=== PATIENT | female | born 1980 | race Caucasian/White ===

== ENCOUNTER → 2016-09-19 | Outpatient (CLI) | payer BC | END | disposition home or self-care (01) | LOC: LABWHC1 10:30 | PROVIDERS: ATTEND Otolaryngology | DX: E03.9 Hypothyroidism, unspecified (principal); R53.83 Other fatigue | CPT/HCPCS: 36415; 84439; 84443 ==

== ENCOUNTER → 2016-12-21 | Outpatient (CLI) | payer BC | END | disposition home or self-care (01) | LOC: LABWHC1 11:36 | PROVIDERS: ATTEND Nurse Practitioner Family | DX: E03.9 Hypothyroidism, unspecified (principal) | CPT/HCPCS: 36415; 84439; 84443 ==

== ENCOUNTER → 2017-01-09 | Outpatient (CLI) | payer BC ==
[2017-01-09 15:05] LABS: Basophils % (A) 0 %; CH 31.3; CHCM 33.2; Eosinophils # (A) 0.1 k/uL (0-0.7); Eosinophils % (A) 1 %; HCT 43.1 % (34.0-46.0); HDW 2.45; HGB 13.8 gm/dL (11.4-16.0); Luc # (Auto) 0.14; Luc % (Auto) 1; Lymphocytes # (A) 2.4 k/uL (1.0-4.8); Lymphocytes % (A) 25 %; MCH 30.4 pg (25.0-35.0); MCHC 32.2 g/dL (31.0-37.0); MCV 94.6 fL (80.0-100.0); Mean Platelet Volume 6.8; Monocytes # (A) 0.4 k/uL (0-1.0); Monocytes % (A) 4 %; Neutrophils # (A) 6.8 k/uL (1.3-7.7); Neutrophils % (A) 69 %; RBC 4.55 m/uL (3.80-5.40); RDW 12.9 % (11.5-15.5); WBC 9.9 k/uL (3.8-10.6); WBC (Perox) 10.37
[2017-01-09 15:07] LABS: Appearance,Urine Cloudy (Clear); Bacteria,Urine Many /hpf; Bilirubin,Urine Negative (Negative); Glucose,Urine (UA) Negative (Negative); Ketones,Urine Negative (Negative); Leukocyte Esterase,Urine Negative (Negative); Mucus,Urine Occasional /hpf; Nitrite,Urine Negative (Negative); Particle Count 5926; Protein,Urine Negative (Negative); RBC,Urine 1 /hpf (0-5); Specific Gravity,Urine 1.006 (1.001-1.035); Squamous Epithelial Cell,Urine 11 /hpf (0-4); UA Billing (MACRO vs. MICRO) MICRO; Urobilinogen,Urine <2.0 mg/dL (<2.0); WBC,Urine 3 /hpf (0-5)
[2017-01-09 15:16] LABS: ALT 30 U/L (9-52); AST 14 U/L (14-36); Alkaline Phosphatase 57 U/L (38-126); Anion Gap 12 mmol/L; Blood Urea Nitrogen 11 mg/dL (7-17); Calcium 9.8 mg/dL (8.4-10.2); Carbon Dioxide 27 mmol/L (22-30); Chloride 101 mmol/L (98-107); Glucose 104 mg/dL (74-99); Non-African American GFR(MDRD) >60 (>60 ml/min/1.73 sqM); Potassium 4.1 mmol/L (3.5-5.1); Sodium 140 mmol/L (137-145); Total Bilirubin 0.3 mg/dL (0.2-1.3); Total Protein 7.5 g/dL (6.3-8.2)
[2017-01-09 15:25] LABS: Partial Thromboplastin Time 23.9 sec (22.0-30.0)
== END | disposition home or self-care (01) ==
LOC: LABWHC1 14:38
PROVIDERS: ATTEND Neurological Surgery
DX: M48.02 Spinal stenosis, cervical region (principal)
CPT/HCPCS: 36415; 80053; 81001; 85025; 85610; 85730

== ENCOUNTER 2017-02-13 04:10 | Emergency (ER) | payer BC ==
[2017-02-13] MEDS ORDERED: ONDANSETRON 4 MG/2 ML VIAL IVP STA (04:30)
[2017-02-13] MEDS ORDERED: SODIUM CHLORIDE 0.9% 1,000 ML IV STA (04:30)
[2017-02-13] MEDS ORDERED: KETOROLAC 30 MG/ML 1 ML VIAL IVP STA (04:30)
[2017-02-13] MEDS ORDERED: diphenhydrAMINE 50 MG/ML 1 ML VIAL IVP STA (04:31)
[2017-02-13] MEDS ORDERED: DEXAMETHASONE SOD PHOSPHATE 10 MG/ML 1 ML VIAL IV STA (04:52)
[2017-02-13 05:12] LABS: Basophils % (A) 0 %; CH 31.6; CHCM 34.9; Eosinophils # (A) 0.1 k/uL (0-0.7); Eosinophils % (A) 2 %; HCT 42.4 % (34.0-46.0); HDW 2.58; HGB 14.6 gm/dL (11.4-16.0); Luc # (Auto) 0.06; Luc % (Auto) 1; Lymphocytes % (A) 17 %; MCH 31.3 pg (25.0-35.0); MCHC 34.4 g/dL (31.0-37.0); MCV 91.1 fL (80.0-100.0); Monocytes # (A) 0.3 k/uL (0-1.0); Monocytes % (A) 5 %; Neutrophils # (A) 4.5 k/uL (1.3-7.7); Neutrophils % (A) 75 %; RBC 4.65 m/uL (3.80-5.40); RDW 13.8 % (11.5-15.5); WBC (Perox) 5.84
[2017-02-13 05:21] LABS: ALT 58 U/L (9-52); AST 23 U/L (14-36); Alkaline Phosphatase 79 U/L (38-126); Anion Gap 13 mmol/L; Blood Urea Nitrogen 10 mg/dL (7-17); Calcium 9.9 mg/dL (8.4-10.2); Carbon Dioxide 24 mmol/L (22-30); Chloride 104 mmol/L (98-107); Glucose 100 mg/dL (74-99); Non-African American GFR(MDRD) >60 (>60 ml/min/1.73 sqM); Potassium 4.1 mmol/L (3.5-5.1); Sodium 141 mmol/L (137-145); Total Bilirubin 0.4 mg/dL (0.2-1.3); Total Protein 7.5 g/dL (6.3-8.2)
[2017-02-13 05:22] LABS: Appearance,Urine Cloudy (Clear); Bacteria,Urine Many /hpf; Bilirubin,Urine Negative (Negative); Glucose,Urine (UA) Negative (Negative); Ketones,Urine Negative (Negative); Leukocyte Esterase,Urine Negative (Negative); Mucus,Urine Rare /hpf; Nitrite,Urine Negative (Negative); Particle Count 13304; Protein,Urine Negative (Negative); RBC,Urine 3 /hpf (0-5); Specific Gravity,Urine 1.009 (1.001-1.035); Squamous Epithelial Cell,Urine 20 /hpf (0-4); UA Billing (MACRO vs. MICRO) MICRO; Urobilinogen,Urine <2.0 mg/dL (<2.0); WBC,Urine 9 /hpf (0-5)
[2017-02-13 05:42] VITALS: RESP 16
[2017-02-13] MEDS ORDERED: HYDROmorphone 1 MG/ML 1 ML SYRINGE IVP STA (05:47)
--- NOTE | 2017-02-13 06:11 | ED ---
General Adult HPI - General Chief complaint: Headache Stated complaint: Migrane Time Seen by Provider: 02/13/17 04:20 Source: patient, RN notes reviewed Mode of arrival: ambulatory Limitations: no limitations - History of Present Illness Initial comments: 36-year-old female with history of migraine presents with bilateral frontal headache. Patient had cervical disc replacement approximately one month ago. She has been wearing a soft cervical collar. She has a history of migraines but has been doing well since her surgery. Over the past 24 hours she has had a worsening headache. This was gradual in onset, typical of her migraines. It is a frontal throbbing headache. She is reporting photophobia. She also had 4 episodes of nausea and vomiting. She has taken Excedrin Migraine, Fioricet without relief. She denies any chest pain or shortness of breath. Denies cough , denies fever, denies abdominal pain or denies dysuria. - Related Data Home Medications Medication Instructions Recorded Confirmed Sertraline [Zoloft] 100 mg PO BID 05/13/15 01/04/16 buPROPion HCL [Wellbutrin XL] 300 mg PO HS 05/13/15 01/04/16 Melatonin 3 mg PO HS 11/14/15 01/04/16 Multivitamins, Thera [Multivitamin] 1 tab PO HS 11/14/15 01/04/16 Butalb/Acetaminophen/Caffeine 1 - 2 cap PO Q4HR PRN 11/30/15 01/04/16 [Fioricet 50-300-40 mg Capsule] Amoxic-Pot Clav 875-125Mg 1 tab PO AC-BID 01/04/16 01/04/16 [Augmentin 875-125] HYDROcodone/APAP 5-325MG [[place] 1 - 2 tab PO Q6H PRN 01/04/16 01/04/16 5-325] predniSONE 20 mg PO DAILY 01/04/16 01/04/16 Allergies Allergy/AdvReac Type Severity Reaction Status Date / Time chlorhexidine Allergy Rash/Hives Verified 02/13/17 04:18 [From Hibiclens] meperidine HCl [From Demerol] Allergy Nausea & Verified 02/13/17 04:18 Vomiting Review of Systems ROS Statement: Those systems with pertinent positive or pertinent negative responses have been documented in the HPI. ROS Other: All systems not noted in ROS Statement are negative. Past Medical History Past Medical History: Cancer Additional Past Medical History / Comment(s): cervical CA, migranes, herniated cervical disks History of Any Multi-Drug Resistant Organisms: None Reported Past Surgical History: Hysterectomy, Joint Replacement, Tonsillectomy Additional Past Surgical History / Comment(s): c6-c7 replaced 01/15/2017 Past Anesthesia/Blood Transfusion Reactions: No Reported Reaction Past Psychological History: Anxiety, Depression Smoking Status: Never smoker Past Alcohol Use History: None Reported Past Drug Use History: None Reported - Past Family History Mother Family Medical History: No Reported History General Exam Limitations: no limitations General appearance: alert, in no apparent distress Head exam: Present: atraumatic, normocephalic Eye exam: Present: normal appearance, PERRL, EOMI, other (Funduscopic examination is unremarkable). Absent: scleral icterus ENT exam: Present: normal exam, mucous membranes moist Neck exam: Present: normal inspection, full ROM, other (Anterior cervical incisions are clean dry and intact). Absent: meningismus Respiratory exam: Present: normal lung sounds bilaterally. Absent: respiratory distress Cardiovascular Exam: Present: regular rate, normal rhythm GI/Abdominal exam: Present: soft. Absent: distended, tenderness Extremities exam: Present: normal inspection, normal capillary refill. Absent: pedal edema Neurological exam: Present: alert, oriented X3, CN II-XII intact. Absent: motor sensory deficit Psychiatric exam: Present: normal affect, normal mood Skin exam: Present: warm, dry Course Vital Signs 02/13/17 02/13/17 02/13/17 04:12 05:07 05:41 Temperature 98.4 F 99.8 F H Pulse Rate 110 H 99 94 Respiratory 18 18 16 Rate Blood Pressure 142/89 143/98 135/77 O2 Sat by Pulse 97 100 98 Oximetry 02/13/17 06:32 Temperature 98.4 F Pulse Rate 82 Respiratory 16 Rate Blood Pressure 126/88 O2 Sat by Pulse 97 Oximetry - Reevaluation(s) Reevaluation #1: 02/13/17 06:09 After initial round of medication patient's headache is now 6 out of 10 from 8 out of 10. Medical Decision Making - Medical Decision Making 36-year-old female with history of migraine presents with headache is typical of her migraines. It was gradual in onset. Frontal and throbbing. There is associated photophobia. Patient had cervical fusion approximately one month ago. She had no complaint of neck pain. No upper extremity numbness tingling or weakness. Her neurologic examination is nonfocal. She is given a headache cocktail including Toradol, Benadryl, Zofran, and dexamethasone. On reevaluation headache is somewhat improved. She does state that in the past Dilaudid has helped her headache. Laboratory studies including CBC, CMP, urinalysis and urine tests are unremarkable. After second dose of IV pain medication the patient is feeling much better. Headache is 2 out of 10. Patient will follow-up with her primary care physician. - Lab Data Result diagrams: 02/13/17 04:50 02/13/17 04:50 Lab Results 02/13/17 02/13/17 02/13/17 Range/Units 04:50 04:50 04:50 WBC 6.0 (3.8-10.6) k/uL RBC 4.65 (3.80-5.40) m/uL Hgb 14.6 (11.4-16.0) gm/dL Hct 42.4 (34.0-46.0) % MCV 91.1 (80.0-100.0) fL MCH 31.3 (25.0-35.0) pg MCHC 34.4 (31.0-37.0) g/dL RDW 13.8 (11.5-15.5) % Plt Count 269 (150-450) k/uL Neutrophils % 75 % Lymphocytes % 17 % Monocytes % 5 % Eosinophils % 2 % Basophils % 0 % Neutrophils # 4.5 (1.3-7.7) k/uL Lymphocytes # 1.0 (1.0-4.8) k/uL Monocytes # 0.3 (0-1.0) k/uL Eosinophils # 0.1 (0-0.7) k/uL Basophils # 0.0 (0-0.2) k/uL Sodium 141 (137-145) mmol/L Potassium 4.1 (3.5-5.1) mmol/L Chloride 104 (98-107) mmol/L Carbon Dioxide 24 (22-30) mmol/L Anion Gap 13 mmol/L BUN 10 (7-17) mg/dL Creatinine 0.70 (0.52-1.04) mg/dL Est GFR (MDRD) Af Amer >60 (>60 ml/min/1.73 sqM) Est GFR (MDRD) Non-Af >60 (>60 ml/min/1.73 sqM) Glucose 100 H (74-99) mg/dL Calcium 9.9 (8.4-10.2) mg/dL Total Bilirubin 0.4 (0.2-1.3) mg/dL AST 23 (14-36) U/L ALT 58 H (9-52) U/L Alkaline Phosphatase 79 (38-126) U/L Total Protein 7.5 (6.3-8.2) g/dL Albumin 4.8 (3.5-5.0) g/dL Urine Color Urine Appearance (Clear) Urine pH (5.0-8.0) Ur Specific [place] (1.001-1.035) Urine Protein (Negative) Urine Glucose (UA) (Negative) Urine Ketones (Negative) Urine Blood (Negative) Urine Nitrite (Negative) Urine Bilirubin (Negative) Urine Urobilinogen (<2.0) mg/dL Ur Leukocyte Esterase (Negative) Urine RBC (0-5) /hpf Urine WBC (0-5) /hpf Ur Squamous Epith Cells (0-4) /hpf Urine Bacteria (None) /hpf Urine Mucus (None) /hpf Urine HCG, Qual Not Detected (Not Detectd) 02/13/17 Range/Units 04:50 WBC (3.8-10.6) k/uL RBC (3.80-5.40) m/uL Hgb (11.4-16.0) gm/dL Hct (34.0-46.0) % MCV (80.0-100.0) fL MCH (25.0-35.0) pg MCHC (31.0-37.0) g/dL RDW (11.5-15.5) % Plt Count (150-450) k/uL Neutrophils % % Lymphocytes % % Monocytes % % Eosinophils % % Basophils % % Neutrophils # (1.3-7.7) k/uL Lymphocytes # (1.0-4.8) k/uL Monocytes # (0-1.0) k/uL Eosinophils # (0-0.7) k/uL Basophils # (0-0.2) k/uL Sodium (137-145) mmol/L Potassium (3.5-5.1) mmol/L Chloride (98-107) mmol/L Carbon Dioxide (22-30) mmol/L Anion Gap mmol/L BUN (7-17) mg/dL Creatinine (0.52-1.04) mg/dL Est GFR (MDRD) Af Amer (>60 ml/min/1.73 sqM) Est GFR (MDRD) Non-Af (>60 ml/min/1.73 sqM) Glucose (74-99) mg/dL Calcium (8.4-10.2) mg/dL Total Bilirubin (0.2-1.3) mg/dL AST (14-36) U/L ALT (9-52) U/L Alkaline Phosphatase (38-126) U/L Total Protein (6.3-8.2) g/dL Albumin (3.5-5.0) g/dL Urine Color Light Yellow Urine Appearance Cloudy H (Clear) Urine pH 6.0 (5.0-8.0) Ur Specific [place] 1.009 (1.001-1.035) Urine Protein Negative (Negative) Urine Glucose (UA) Negative (Negative) Urine Ketones Negative (Negative) Urine Blood Trace H (Negative) Urine Nitrite Negative (Negative) Urine Bilirubin Negative (Negative) Urine Urobilinogen <2.0 (<2.0) mg/dL Ur Leukocyte Esterase Negative (Negative) Urine RBC 3 (0-5) /hpf Urine WBC 9 H (0-5) /hpf Ur Squamous Epith Cells 20 H (0-4) /hpf Urine Bacteria Many H (None) /hpf Urine Mucus Rare H (None) /hpf Urine HCG, Qual (Not Detectd) Disposition Clinical Impression: Migraine Disposition: HOME SELF-CARE Condition: Good Instructions: Acute Headache (ED) Referrals: Yassine Em DO [Primary Care Provider] - 1-2 days
[2017-02-13 07:01] VITALS: BP 128/89; PULSE 86; TEMP 98.3
== END 2017-02-13 07:00 | disposition home or self-care (01) ==
LOC: EC 04:10
DX: G43.909 Migraine, unspecified, not intractable, without status migrainosus (principal); F32.9 Major depressive disorder, single episode, unspecified; F41.9 Anxiety disorder, unspecified; Z85.41 Personal history of malignant neoplasm of cervix uteri; Z79.52 Long term (current) use of systemic steroids; Z79.899 Other long term (current) drug therapy; Z88.5 Allergy status to narcotic agent; Z88.8 Allergy status to other drugs, medicaments and biological substances
CPT/HCPCS: 36415; 80053; 85025; 81001; 81025; 99283; 96374; 96375 ×4; 96361; J1200; J1100; J2405; J1885; J1170

== ENCOUNTER → 2017-02-18 | Outpatient (CLI) | payer BC ==
--- NOTE | 2017-02-18 09:43 | XR ---
EXAMINATION TYPE: XR cervical spine w flex/ext DATE OF EXAM: 02/18/2017 COMPARISON: MR cervical spine dated 05/29/2016. HISTORY: Postoperative examination. TECHNIQUE: 5 view cervical spine radiograph. FINDINGS: Intervertebral disc device has been placed at the C6-C7 level. The cervical spine maintains normal alignment in the neutral position, flexion, and extension. No significant prevertebral soft t issue swelling is seen. No evidence of fracture or dislocation. IMPRESSION: Postsurgical changes of the cervical spine without malalignment, fracture, dislocation, o r significant prevertebral soft tissue swelling.
== END | disposition home or self-care (01) ==
LOC: RADXRMAIN 09:03
PROVIDERS: ATTEND Neurological Surgery
DX: M54.2 Cervicalgia (principal); Z98.890 Other specified postprocedural states
CPT/HCPCS: 72052

== ENCOUNTER → 2017-04-23 | Outpatient (CLI) | payer BC, OTHER ==
--- NOTE | 2017-04-23 09:44 | XR ---
EXAMINATION TYPE: XR cervical spine w flex/ext DATE OF EXAM: 04/23/2017 TECHNIQUE: Frontal, lateral, oblique, dynamic flexion and extension lateral images, and open mouth vi ew of the cervical spine are obtained. HISTORY: M47.22 spondylosis C6-C7 surgery progress study. COMPARISON: Cervical spine x-ray February 18, 2017 FINDINGS: The cervical spine is visualized in its entirety from C1 thru the top of T1 level, it is s atisfactory and straightened in alignment without evidence of acute fracture or dislocation. The pre -vertebral soft tissue appears within normal limits. The C1-C2 articulation is within normal limits on the open mouth view. There is redemonstration of metallic disc spacers C6-C7 level. There is satisfactory flexion and exte nsion with stability of endplate metallic spacers. Vertebral body heights and disc space heights are maintained. Oblique images are felt within normal limits. No significant spurring is seen. No suspici ous subluxation or increased disc space narrowing is identified on dynamic images. Overlying soft tis jose is unremarkable. IMPRESSION: Postsurgical changes C6-C7 level with stable and satisfactory alignment including on kristian melo images.
== END | disposition home or self-care (01) ==
LOC: RADXRMAIN 09:11
PROVIDERS: ATTEND Neurological Surgery
DX: M47.22 Other spondylosis with radiculopathy, cervical region (principal); Z98.890 Other specified postprocedural states
CPT/HCPCS: 72052

== ENCOUNTER → 2017-07-23 | Outpatient (CLI) | payer BC ==
--- NOTE | 2017-07-23 18:31 | XR ---
EXAMINATION TYPE: XR cervical spine w flex/ext DATE OF EXAM: 07/23/2017 COMPARISON: 04/23/2017 HISTORY: Follow-up surgery TECHNIQUE: 4 views FINDINGS: Multiple filling exam including flexion and extension views show no evidence of instability there is normal movement on the positional views. There is previous anterior fusion at C6-7. Posteri or elements are intact. IMPRESSION: No evidence of instability. No adverse change compared to old exam. Normal alignment.
== END | disposition home or self-care (01) ==
LOC: RADXRMAIN 17:44
PROVIDERS: ATTEND Neurological Surgery
DX: M50.30 Other cervical disc degeneration, unspecified cervical region (principal)
CPT/HCPCS: 72052

== ENCOUNTER → 2017-10-08 | Outpatient (CLI) | payer BC ==
--- NOTE | 2017-10-08 08:30 | MR ---
EXAMINATION TYPE: MR cervical spine wo con DATE OF EXAM: 10/08/2017 6:44 AM COMPARISON: Preoperative evaluation 05/29/2016 HISTORY: Cervical Disc Degeneration, neck pain, arm tingling and numbness Multiplanar MultiSpin echo imaging of the cervical spine was performed. C2-C3: No evidence for degenerative disc disease. No disc bulge/herniation or protrusion. No Canal stenosis. Foramina are patent bilaterally. C3-C4: No evidence for degenerative disc disease. No disc bulge/herniation or protrusion. No Canal stenosis. Foramina are patent bilaterally. C4-C5: No evidence for degenerative disc disease. No disc bulge/herniation or protrusion. No Canal stenosis. Foramina are patent bilaterally. C5-C6: No evidence for degenerative disc disease. No disc bulge/herniation or protrusion. No Canal stenosis. Foramina are patent bilaterally. C6-C7: Postsurgical changes of anterior cervical discectomy and fusion. Intervertebral spacer with ex tensive artifact limits evaluation at this level. Alignment is anatomic. C7-T1: No evidence for degenerative disc disease. No disc bulge/herniation or protrusion. No Canal stenosis. Foramina are patent bilaterally. Cervical segments are intact. There is normal alignment. Cervical spinal cord is of normal signal. Craniovertebral junction relationships are within normal limits. IMPRESSION: 1. Postoperative changes of ACDF at C6-7 with extensive artifact limiting evaluation at this level. T he remaining levels are felt to be within normal limits.
== END | disposition home or self-care (01) ==
LOC: RADMRIMAIN 06:02
PROVIDERS: ATTEND Neurological Surgery
DX: M50.30 Other cervical disc degeneration, unspecified cervical region (principal); Z98.1 Arthrodesis status
CPT/HCPCS: 72141

== ENCOUNTER → 2018-09-17 | Outpatient (CLI) | payer BC ==
[2018-09-17 19:40] LABS: T4, Free (Free Thyroxine) 0.9 ng/dL (0.80-1.80)
== END ==
LOC: LABWHC1 12:43
PROVIDERS: ATTEND Otolaryngology
DX: E03.9 Hypothyroidism, unspecified (principal)
CPT/HCPCS: 36415; 84439; 84443

== ENCOUNTER 2018-11-06 21:27 | Emergency (ER) | payer BC ==
[2018-11-06] MEDS ORDERED: SODIUM CHLORIDE 0.9% 500 ML 500 ML IV STA (21:55)
[2018-11-06] MEDS ORDERED: ASPIRIN 81 MG PO STA (22:03)
--- NOTE | 2018-11-06 22:03 | ED ---
General Adult HPI - General Chief complaint: Chest Pain Stated complaint: Chest Pain,Upper Back Pain,SOB Time Seen by Provider: 11/06/18 21:41 Source: patient, RN notes reviewed Mode of arrival: ambulatory Limitations: no limitations - History of Present Illness Initial comments: 38-year-old female with a past medical history of Cervical cancer, migraines, herniated disc, anxiety, thyroid disorder presents to the emergency department for a chief complaint of chest pressure 3 hours. Patient states onset was approximately 7:00 PM. The patient states she was driving when this started. Patient admits that she's had a significant amount of stress over the past 6 months. Patient states pain is radiating to her back between her shoulder blades. Patient denies increased pain with taking a deep breath but does state it is difficult to take a deep breath. Patient denies any recent travel, surgeries, trauma. Denies any swelling in the legs or pain in the legs.patient denies any cardiac history and her parents or siblings however states her marcelino richardson grandfather had an [place] at 42. Patient has no other complaints at this time including abdominal pain, nausea or vomiting, headache, or visual changes. - Related Data Home Medications Medication Instructions Recorded Confirmed Sertraline [Zoloft] 100 mg PO BID 05/13/15 11/06/18 buPROPion HCL [Wellbutrin XL] 300 mg PO HS 05/13/15 11/06/18 ALPRAZolam [Xanax] 0.5 mg PO BID 11/06/18 11/06/18 Levothyroxine Sodium [Synthroid] 25 mcg PO DAILY 11/06/18 11/06/18 Omeprazole Magnesium [PriLOSEC OTC] 20 mg PO DAILY PRN 11/06/18 11/06/18 Allergies Allergy/AdvReac Type Severity Reaction Status Date / Time chlorhexidine Allergy Rash/Hives Verified 11/06/18 21:42 [From Hibiclens] meperidine HCl [From Demerol] AdvReac Nausea & Verified 11/06/18 21:42 Vomiting Review of Systems ROS Statement: Those systems with pertinent positive or pertinent negative responses have been documented in the HPI. ROS Other: All systems not noted in ROS Statement are negative. Past Medical History Past Medical History: Cancer Additional Past Medical History / Comment(s): cervical CA, migranes, herniated cervical disks History of Any Multi-Drug Resistant Organisms: None Reported Past Surgical History: Hysterectomy, Joint Replacement, Tonsillectomy Additional Past Surgical History / Comment(s): c6-c7 replaced 01/15/2017, partial thyroid removed Past Anesthesia/Blood Transfusion Reactions: No Reported Reaction Past Psychological History: Anxiety, Depression Smoking Status: Never smoker Past Alcohol Use History: None Reported Past Drug Use History: None Reported - Past Family History Mother Family Medical History: No Reported History General Exam Limitations: no limitations General appearance: alert, in no apparent distress Head exam: Present: atraumatic, normocephalic, normal inspection Eye exam: Present: normal appearance, PERRL, EOMI. Absent: scleral icterus, conjunctival injection, periorbital swelling ENT exam: Present: normal exam Neck exam: Present: normal inspection, full ROM. Absent: tenderness, meningismus, lymphadenopathy Respiratory exam: Present: normal lung sounds bilaterally. Absent: respiratory distress, wheezes, rales, rhonchi, stridor Cardiovascular Exam: Present: regular rate, normal rhythm, normal heart sounds. Absent: systolic murmur, diastolic murmur, rubs, gallop, clicks GI/Abdominal exam: Present: soft, normal bowel sounds. Absent: distended, tenderness, guarding, rebound, rigid Neurological exam: Present: alert, oriented X3, CN II-XII intact Psychiatric exam: Present: normal affect, normal mood Course Vital Signs 11/06/18 11/06/18 11/06/18 21:29 21:38 21:40 Temperature 98.2 F Pulse Rate 98 93 99 Respiratory 18 20 20 Rate Blood Pressure 139/95 141/101 O2 Sat by Pulse 99 98 97 Oximetry 11/06/18 11/06/18 11/06/18 21:50 22:00 22:10 Temperature Pulse Rate 100 101 H 103 H Respiratory 18 14 15 Rate Blood Pressure 141/101 141/101 127/96 O2 Sat by Pulse 99 98 97 Oximetry 11/06/18 11/06/18 11/06/18 22:20 22:30 22:40 Temperature Pulse Rate 100 106 H 105 H Respiratory 20 16 12 Rate Blood Pressure 127/96 127/96 135/99 O2 Sat by Pulse 99 97 98 Oximetry 11/06/18 11/06/18 22:50 23:00 Temperature Pulse Rate 96 100 Respiratory 14 13 Rate Blood Pressure 135/99 135/99 O2 Sat by Pulse 96 97 Oximetry EKG Findings - EKG Comments: EKG Findings:: Normal sinus rhythm, ventricular rate 96, DE interval 160, QRS 92, QTc 477 Medical Decision Making - Medical Decision Making 38-year-old female presents to the emergency department for chest pressure radiating to shoulder blades. Patient states she's been very anxious lately and had a lot of stress in the past 6 months. Patient states she feels like she can't get a deep breath. Exam is unremarkable. Patient is well-appearing. CBC and CMP is unremarkable. Troponin is negative. CTA shows no pulmonary embolism or aortic aneurysm or dissection. Patient was given 2 mg of morphine, feeling much better. Patient is very low risk, a never smoker without any cardiac history. Patient has a heart score of 1. EKG unremarkable. At this time patient can follow up outpatient. She will return here if she has any worsening symptoms. - Lab Data Result diagrams: 11/06/18 21:46 11/06/18 21:46 Lab Results 11/06/18 11/06/18 11/06/18 Range/Units 21:46 21:46 21:46 WBC 7.3 (3.8-10.6) k/uL RBC 4.52 (3.80-5.40) m/uL Hgb 13.7 (11.4-16.0) gm/dL Hct 41.0 (34.0-46.0) % MCV 90.7 (80.0-100.0) fL MCH 30.3 (25.0-35.0) pg MCHC 33.4 (31.0-37.0) g/dL RDW 13.1 (11.5-15.5) % Plt Count 319 (150-450) k/uL Neutrophils % 54 % Lymphocytes % 37 % Monocytes % 5 % Eosinophils % 2 % Basophils % 1 % Neutrophils # 3.9 (1.3-7.7) k/uL Lymphocytes # 2.7 (1.0-4.8) k/uL Monocytes # 0.4 (0-1.0) k/uL Eosinophils # 0.1 (0-0.7) k/uL Basophils # 0.1 (0-0.2) k/uL PT (9.0-12.0) sec INR (<1.2) APTT (22.0-30.0) sec Sodium 139 (137-145) mmol/L Potassium 3.9 (3.5-5.1) mmol/L Chloride 105 (98-107) mmol/L Carbon Dioxide 24 (22-30) mmol/L Anion Gap 10 mmol/L BUN 15 (7-17) mg/dL Creatinine 0.70 (0.52-1.04) mg/dL Est GFR (CKD-EPI)AfAm >90 (>60 ml/min/1.73 sqM) Est GFR (CKD-EPI)NonAf >90 (>60 ml/min/1.73 sqM) Glucose 113 H (74-99) mg/dL Calcium 9.7 (8.4-10.2) mg/dL Magnesium 2.2 (1.6-2.3) mg/dL Total Bilirubin 0.4 (0.2-1.3) mg/dL AST 25 (14-36) U/L ALT 38 (9-52) U/L Alkaline Phosphatase 78 (38-126) U/L Troponin I (0.000-0.034) ng/mL NT-Pro-B Natriuret Pep 22 pg/mL Total Protein 7.2 (6.3-8.2) g/dL Albumin 4.6 (3.5-5.0) g/dL Amylase 73 (30-110) U/L Lipase 273 (23-300) U/L Urine Color Urine Appearance (Clear) Urine pH (5.0-8.0) Ur Specific [place] (1.001-1.035) Urine Protein (Negative) Urine Glucose (UA) (Negative) Urine Ketones (Negative) Urine Blood (Negative) Urine Nitrite (Negative) Urine Bilirubin (Negative) Urine Urobilinogen (<2.0) mg/dL Ur Leukocyte Esterase (Negative) 11/06/18 11/06/18 11/06/18 Range/Units 21:46 21:46 22:32 WBC (3.8-10.6) k/uL RBC (3.80-5.40) m/uL Hgb (11.4-16.0) gm/dL Hct (34.0-46.0) % MCV (80.0-100.0) fL MCH (25.0-35.0) pg MCHC (31.0-37.0) g/dL RDW (11.5-15.5) % Plt Count (150-450) k/uL Neutrophils % % Lymphocytes % % Monocytes % % Eosinophils % % Basophils % % Neutrophils # (1.3-7.7) k/uL Lymphocytes # (1.0-4.8) k/uL Monocytes # (0-1.0) k/uL Eosinophils # (0-0.7) k/uL Basophils # (0-0.2) k/uL PT 9.8 (9.0-12.0) sec INR 0.9 (<1.2) APTT 26.4 (22.0-30.0) sec Sodium (137-145) mmol/L Potassium (3.5-5.1) mmol/L Chloride (98-107) mmol/L Carbon Dioxide (22-30) mmol/L Anion Gap mmol/L BUN (7-17) mg/dL Creatinine (0.52-1.04) mg/dL Est GFR (CKD-EPI)AfAm (>60 ml/min/1.73 sqM) Est GFR (CKD-EPI)NonAf (>60 ml/min/1.73 sqM) Glucose (74-99) mg/dL Calcium (8.4-10.2) mg/dL Magnesium (1.6-2.3) mg/dL Total Bilirubin (0.2-1.3) mg/dL AST (14-36) U/L ALT (9-52) U/L Alkaline Phosphatase (38-126) U/L Troponin I <0.012 (0.000-0.034) ng/mL NT-Pro-B Natriuret Pep pg/mL Total Protein (6.3-8.2) g/dL Albumin (3.5-5.0) g/dL Amylase (30-110) U/L Lipase (23-300) U/L Urine Color Colorless Urine Appearance Clear (Clear) Urine pH 6.5 (5.0-8.0) Ur Specific [place] 1.022 (1.001-1.035) Urine Protein Negative (Negative) Urine Glucose (UA) Negative (Negative) Urine Ketones Negative (Negative) Urine Blood Negative (Negative) Urine Nitrite Negative (Negative) Urine Bilirubin Negative (Negative) Urine Urobilinogen <2.0 (<2.0) mg/dL Ur Leukocyte Esterase Negative (Negative) Disposition Clinical Impression: Atypical chest pain Disposition: HOME SELF-CARE Condition: Good Instructions (If sedation given, give patient instructions): Chest Pain (ED) Additional Instructions: Please take Motrin or Tylenol for pain. Please follow-up with primary care in 1-2 days. Please return here to the emergency department if you have any worsening symptoms. Is patient prescribed a controlled substance at d/c from ED?: No Referrals: Yassine Em DO [Primary Care Provider] - 1-2 days Time of Disposition: 23:22
[2018-11-06] MEDS: MORPHINE SULFATE 4 MG/ML SYRINGE IVP STA ×2 (22:05→22:36)
[2018-11-06 22:10] LABS: Basophils # (A) 0.1 k/uL (0-0.2); Basophils % (A) 1 %; Eosinophils # (A) 0.1 k/uL (0-0.7); Eosinophils % (A) 2 %; HGB 13.7 gm/dL (11.4-16.0); Lymphocytes # (A) 2.7 k/uL (1.0-4.8); Lymphocytes % (A) 37 %; MCH 30.3 pg (25.0-35.0); MCHC 33.4 g/dL (31.0-37.0); MCV 90.7 fL (80.0-100.0); Mean Platelet Volume 6.5; Monocytes # (A) 0.4 k/uL (0-1.0); Monocytes % (A) 5 %; Neutrophils # (A) 3.9 k/uL (1.3-7.7); Neutrophils % (A) 54 %; Platelet Count 319 k/uL (150-450); RBC 4.52 m/uL (3.80-5.40); RDW 13.1 % (11.5-15.5); WBC 7.3 k/uL (3.8-10.6)
[2018-11-06 22:19] LABS: ALT 38 U/L (9-52); AST 25 U/L (14-36); Albumin 4.6 g/dL (3.5-5.0); Alkaline Phosphatase 78 U/L (38-126); Amylase 73 U/L (30-110); Anion Gap 10 mmol/L; Blood Urea Nitrogen 15 mg/dL (7-17); Calcium 9.7 mg/dL (8.4-10.2); Carbon Dioxide 24 mmol/L (22-30); Chloride 105 mmol/L (98-107); Glucose 113 mg/dL (74-99); Lipase 273 U/L (23-300); Magnesium 2.2 mg/dL (1.6-2.3); Sodium 139 mmol/L (137-145); Total Bilirubin 0.4 mg/dL (0.2-1.3); Total Protein 7.2 g/dL (6.3-8.2)
[2018-11-06 22:20] LABS: INR 0.9 (<1.2); Partial Thromboplastin Time 26.4 sec (22.0-30.0); Prothrombin Time 9.8 sec (9.0-12.0)
[2018-11-06 22:34] LABS: Potassium 3.9 mmol/L (3.5-5.1)
[2018-11-06 22:41] LABS: Appearance,Urine Clear (Clear); Bilirubin,Urine Negative (Negative); Blood,Urine Negative (Negative); Color,Urine Colorless; Glucose,Urine (UA) Negative (Negative); Ketones,Urine Negative (Negative); Leukocyte Esterase,Urine Negative (Negative); Nitrite,Urine Negative (Negative); PH, Urine 6.5 (5.0-8.0); Protein,Urine Negative (Negative); Specific Gravity,Urine 1.022 (1.001-1.035); Urobilinogen,Urine <2.0 mg/dL (<2.0)
--- NOTE | 2018-11-06 22:41 | CT ---
EXAM: CT Angiography Chest With Intravenous Contrast CLINICAL HISTORY: ITS.REASON CT Reason: Pain TECHNIQUE: Axial computed tomographic angiography images of the chest with intravenous contrast using pulmonary embolism protocol. CTDI is 7 mGy and DLP is 269.7 mGy-cm. This CT exam was performed using one or more of the following dose reduction techniques: automated exposure control, adjustment of the mA and/or kV according to patient size, and/or use of iterative reconstruction technique. MIP reconstructed images were created and reviewed. COMPARISON: CT chest on 11/15/2015 FINDINGS: Lung parenchyma: Punctate calcified granuloma in the right upper lobe. No focal consolidation identified. Minimal dependent atelectasis bilaterally Pleural space: Normal. No pleural effusion or pneumothorax. Mediastinum/alexandru: Nonspecific stable mildly prominent mediastinal and hilar lymph nodes. Heart: Normal. No cardiomegaly or pericardial effusion. Vasculature: Normal. No pulmonary embolus. Aorta: Ductus bump along the inferior aspect of the aortic arch. No aneurysm or dissection. Airways: Patent. Bones: Degenerative changes of the spine. No bony lesion or acute fracture. Muscles: No mass. Subcutaneous tissues: Normal. Upper abdomen: Small splenule. Other: Interval resection of the right thyroid lobe. IMPRESSION: 1. No pulmonary embolus identified. 2. No aortic aneurysm or dissection. 3. No acute pulmonary parenchymal abnormality identified.
[2018-11-06] MEDS ORDERED: KETOROLAC 30 MG/ML 1 ML VIAL IVP STA (23:23)
[2018-11-06 23:55] VITALS: BP 118/83; PULSE 98; RESP 16; TEMP 98.1
== END 2018-11-06 23:58 | disposition home or self-care (01) ==
LOC: EC 21:27
DX: R07.89 Other chest pain (principal); M54.6 Pain in thoracic spine; F43.9 Reaction to severe stress, unspecified; E07.9 Disorder of thyroid, unspecified; F32.9 Major depressive disorder, single episode, unspecified; F41.9 Anxiety disorder, unspecified; Z88.1 Allergy status to other antibiotic agents; Z88.5 Allergy status to narcotic agent; Z79.890 Hormone replacement therapy; Z79.899 Other long term (current) drug therapy; Z85.41 Personal history of malignant neoplasm of cervix uteri; Z87.39 Personal history of other diseases of the musculoskeletal system and connective tissue; Z90.710 Acquired absence of both cervix and uterus; Z96.698 Presence of other orthopedic joint implants; Z82.49 Family history of ischemic heart disease and other diseases of the circulatory system
CPT/HCPCS: 36415; 93005; 83880; 80053; 82150; 83690; 83735; 84484; 85025; 85610; 85730; 81003; 71275; 99285; 96374; 96375; J2270; J1885; Q9967

== ENCOUNTER → 2018-12-12 | Outpatient (CLI) | payer BC ==
[2018-12-12 16:57] LABS: T4, Free (Free Thyroxine) 0.9 ng/dL (0.80-1.80)
== END | disposition home or self-care (01) ==
LOC: LABWHC1 08:16
PROVIDERS: ATTEND Otolaryngology
DX: E03.9 Hypothyroidism, unspecified (principal); R53.83 Other fatigue; L65.9 Nonscarring hair loss, unspecified
CPT/HCPCS: 36415; 82306; 84439; 84443; 84481

== ENCOUNTER → 2019-03-04 | Outpatient (CLI) | payer BC ==
--- NOTE | 2019-03-04 11:55 | MR ---
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 C2-C3: No evidence for degenerative disc disease. No disc bulge/herniation or protrusion. No Canal stenosis. Foramina are patent bilaterally. C3-C4: No evidence for degenerative disc disease. No disc bulge/herniation or protrusion. No Canal stenosis. Foramina are patent bilaterally. Mild uncovertebral joint hypertrophy on the right. C4-C5: No evidence for degenerative disc disease. No disc bulge/herniation or protrusion. No Canal stenosis. Foramina are patent bilaterally. C5-C6: No evidence for degenerative disc disease. No disc bulge/herniation or protrusion. No Canal stenosis. Foramina are patent bilaterally. Bilateral uncovertebral joint hypertrophy with mild right -sided foraminal encroachment. Artifact limits assessment spinal canal. Central disc bulging results in mild anterior thecal sac compression. C6-C7: Postsurgical changes which results in nondiagnostic assessment this level due to extreme artif act. C7-T1: No evidence for degenerative disc disease. No disc bulge/herniation or protrusion. No Canal stenosis. Foramina are patent bilaterally. Cervical segments are intact. There is normal alignment. Cervical spinal cord is of normal signal. Craniovertebral junction relationships are within normal limits. There is asymmetric appearance to the thyroid on the left which is also similar to the prior CT scan. IMPRESSION: 1. Nondiagnostic assessment C6-C7 due to postsurgical artifact. 2. Degenerative disc disease C5-C6 with disc bulging and mild effacement of thecal sac. Uncovertebral joint hypertrophy is greater on the right results in mild right-sided foraminal encroachment.
== END | disposition home or self-care (01) ==
LOC: RADMRIMAIN 09:15
PROVIDERS: ATTEND Neurological Surgery
DX: M50.822 Other cervical disc disorders at C5-C6 level (principal); M50.322 Other cervical disc degeneration at C5-C6 level
CPT/HCPCS: 72141

== ENCOUNTER → 2019-03-11 | Outpatient (CLI) | payer BC ==
--- NOTE | 2019-03-11 10:28 | XR ---
EXAMINATION TYPE: XR cervical spine w flex/ext DATE OF EXAM: 03/11/2019 TECHNIQUE: Frontal, lateral, oblique, swimmers, and open mouth view of the cervical spine are obtaine d. Flexion and extension views are also submitted. HISTORY: M54.2 Neck pain COMPARISON: None FINDINGS: Postoperative changes of ACDF C6-7 with intervertebral body spacer noted. Alignment is sta ble at neutral, flexion and extension. The cervical spine is visualized in its entirety from C1 thru the top of T1 level, it is satisfactory in alignment without evidence of acute fracture or dislocatio n. The pre-vertebral soft tissue appears within normal limits. The C1-C2 articulation is within nor mal limits on the open mouth view. The oblique images are within normal limits. IMPRESSION: Postoperative changes of ACDF C6-7 with intervertebral body spacer noted. Alignment is s table at neutral, flexion and extension.
== END | disposition home or self-care (01) ==
LOC: RADXRMAIN 10:04
PROVIDERS: ATTEND Neurological Surgery
DX: M54.2 Cervicalgia (principal); Z98.890 Other specified postprocedural states
CPT/HCPCS: 72052

== ENCOUNTER → 2019-11-24 | Outpatient (CLI) | payer BC ==
[2019-11-24 18:47] LABS: Calcium 9.6 mg/dL (8.7-10.3)
== END | disposition home or self-care (01) ==
LOC: LABWHC1 11:33
PROVIDERS: ATTEND Otolaryngology
DX: E03.9 Hypothyroidism, unspecified (principal); R53.83 Other fatigue
CPT/HCPCS: 36415; 82306; 82310; 83970; 84439; 84443

== ENCOUNTER → 2019-12-31 | Outpatient (CLI) | payer BC | END | disposition home or self-care (01) | LOC: LABWHC1 08:52 | PROVIDERS: ATTEND Family Medicine | DX: R11.0 Nausea (principal); R53.83 Other fatigue; Z20.828 Contact with and (suspected) exposure to other viral communicable diseases ==

== ENCOUNTER 2020-06-18 13:56 | Emergency (ER) | payer BC ==
[2020-06-18 14:06] VITALS: RESP 18
[2020-06-18 15:14] LABS: Basophils # (A) 0.1 k/uL (0-0.2); Basophils % (A) 1 %; Eosinophils # (A) 0.1 k/uL (0-0.7); Eosinophils % (A) 2 %; HCT 42.5 % (34.0-46.0); HGB 14.3 gm/dL (11.4-16.0); Lymphocytes % (A) 21 %; MCH 30.5 pg (25.0-35.0); MCHC 33.6 g/dL (31.0-37.0); MCV 90.8 fL (80.0-100.0); Mean Platelet Volume 6.7; Monocytes # (A) 0.2 k/uL (0-1.0); Monocytes % (A) 4 %; Neutrophils # (A) 3.4 k/uL (1.3-7.7); Neutrophils % (A) 71 %; Platelet Count 246 k/uL (150-450); RBC 4.68 m/uL (3.80-5.40); RDW 12.6 % (11.5-15.5); WBC 4.8 k/uL (3.8-10.6)
--- NOTE | 2020-06-18 15:21 | ED ---
URI HPI - General Chief Complaint: Upper Respiratory Infection Stated Complaint: +COVID,Diff Breathing Time Seen by Provider: 06/18/20 14:09 Source: patient Mode of arrival: ambulatory Limitations: no limitations - History of Present Illness Initial Comments: Patient is a 39-year-old female presenting to the emergency Department with complaints of shortness of breath, chest tightness over the past few days. Patient states she was tested positive for cold did about 5 days ago. Patient states she has been feeling body aches, fatigue, dry cough, headaches and chest tightness over the past week. She states she has been monitoring her O2 levels at home and they have been anywhere in the 90s but today did dip down into the 89. Patient states because of the worsening shortness of breath and chest discomfort she decided to come in to be seen. She states she's had low-grade fevers throughout this past week. She states today she did take an ibuprofen just before she came in. She does admit to some mild nausea however no vomiting or diarrhea, no abdominal pain. She denies history of blood clots. She denies being this time. She denies history of lung disease or heart disease. She has no further complaints at this time. Upon arrival to the ER, her temperature is 99.0, pulse is 110, rest of vitals normal, 96% on room air. - Related Data Home Medications Medication Instructions Recorded Confirmed Sertraline [Zoloft] 100 mg PO BID 05/13/15 11/06/18 buPROPion HCL [Wellbutrin XL] 300 mg PO HS 05/13/15 11/06/18 ALPRAZolam [Xanax] 0.5 mg PO BID 11/06/18 11/06/18 Levothyroxine Sodium [Synthroid] 25 mcg PO DAILY 11/06/18 11/06/18 Omeprazole Magnesium [PriLOSEC OTC] 20 mg PO DAILY PRN 11/06/18 11/06/18 Allergies Allergy/AdvReac Type Severity Reaction Status Date / Time chlorhexidine Allergy Rash/Hives Verified 06/18/20 14:01 [From Hibiclens] meperidine HCl [From Demerol] AdvReac Nausea & Verified 06/18/20 14:01 Vomiting Review of Systems ROS Statement: Those systems with pertinent positive or pertinent negative responses have been documented in the HPI. ROS Other: All systems not noted in ROS Statement are negative. Past Medical History Past Medical History: Cancer Additional Past Medical History / Comment(s): cervical CA, migranes, herniated cervical disks History of Any Multi-Drug Resistant Organisms: None Reported Past Surgical History: Hysterectomy, Joint Replacement, Tonsillectomy Additional Past Surgical History / Comment(s): c6-c7 replaced 01/15/2017, partial thyroid removed Past Anesthesia/Blood Transfusion Reactions: No Reported Reaction Past Psychological History: Anxiety, Depression Smoking Status: Former smoker Past Alcohol Use History: None Reported Past Drug Use History: None Reported - Past Family History Mother Family Medical History: No Reported History General Exam - General Exam Comments Initial Comments: GENERAL: Patient is well-developed and well-nourished. Patient is nontoxic and in no acute distress. HEAD: Atraumatic, normocephalic. EYES: Pupils equal round and reactive to light, extraocular movements intact, sclera anicteric, conjunctiva are normal. Eyelids were unremarkable. ENT: TMs normal, nares patent, oropharynx clear without exudates. Moist mucous memb ranes. NECK: Normal range of motion, supple without lymphadenopathy or JVD. LUNGS: Unlabored respirations. Breath sounds clear to auscultation bilaterally and equal. No wheezes rales or rhonchi. HEART: Regular rate and rhythm without murmurs, rubs or gallops. ABDOMEN: Soft, nontender, normoactive bowel sounds. No guarding, no rebound. No masses appreciated. : Deferred MUSCULOSKELETAL: Normal extremities with adequate strength and normal range of motion, no pitting or edema. No clubbing or cyanosis. NEUROLOGICAL: Patient is alert and oriented x 3. Motor and sensory are also intact. Cranial nerves II through XII grossly intact. Symmetrical smile. Normal speech, normal gait. PSYCH: Normal mood, normal affect. SKIN: Warm, Dry, normal turgor, no rashes or lesions noted. Limitations: no limitations Course Vital Signs 06/18/20 06/18/20 14:01 15:40 Temperature 99 F 99.1 F Pulse Rate 110 H 92 Respiratory 18 18 Rate Blood Pressure 136/101 137/98 O2 Sat by Pulse 96 98 Oximetry Medical Decision Making - Medical Decision Making Patient is a 39-year-old female here for shortness of breath, chest tightness, positive Covid test 5 days ago. Her symptoms started 1 week ago. She is afe brile on arrival, slightly tachycardia at 110, 96% on room air. Her exam reveals no acute findings. Her EKG is normal, no acute process. Labs show a normal white count, CRP is less than 5, d-dimer is normal. Chest x-ray shows no acute findings. Vital signs are reassessed, patient's pulse is 92, 98% on room air. She just been stable in the ER. I discussed these findings with the patient. I recommended continuing with her albuterol inhaler as needed for any shortness of breath or cough. She can continue with Tylenol or ibuprofen for any body aches, fevers. She is stable for discharge. Patient is in agreement with this plan of care. She can follow-up with her PCP. Return parameters were discussed with the patient she verbalized understanding. Case discussed with Dr. Nash. - Lab Data Result diagrams: 06/18/20 14:55 06/18/20 14:55 Lab Results 06/18/20 06/18/20 06/18/20 Range/Units 14:55 14:55 14:55 WBC 4.8 (3.8-10.6) k/uL RBC 4.68 (3.80-5.40) m/uL Hgb 14.3 (11.4-16.0) gm/dL Hct 42.5 (34.0-46.0) % MCV 90.8 (80.0-100.0) fL MCH 30.5 (25.0-35.0) pg MCHC 33.6 (31.0-37.0) g/dL RDW 12.6 (11.5-15.5) % Plt Count 246 (150-450) k/uL MPV 6.7 Neutrophils % 71 % Lymphocytes % 21 % Monocytes % 4 % Eosinophils % 2 % Basophils % 1 % Neutrophils # 3.4 (1.3-7.7) k/uL Lymphocytes # 1.0 (1.0-4.8) k/uL Monocytes # 0.2 (0-1.0) k/uL Eosinophils # 0.1 (0-0.7) k/uL Basophils # 0.1 (0-0.2) k/uL D-Dimer <0.17 (<0.60) mg/L FEU Sodium 138 (137-145) mmol/L Potassium 3.7 (3.5-5.1) mmol/L Chloride 106 (98-107) mmol/L Carbon Dioxide 26 (22-30) mmol/L Anion Gap 6 mmol/L BUN 11 (7-17) mg/dL Creatinine 0.69 (0.52-1.04) mg/dL Est GFR (CKD-EPI)AfAm >90 (>60 ml/min/1.73 sqM) Est GFR (CKD-EPI)NonAf >90 (>60 ml/min/1.73 sqM) Glucose 122 H (74-99) mg/dL Calcium 9.3 (8.4-10.2) mg/dL Total Bilirubin 0.3 (0.2-1.3) mg/dL AST 23 (14-36) U/L ALT 28 (4-34) U/L Alkaline Phosphatase 63 (38-126) U/L C-Reactive Protein <5.0 (<10.0) mg/L Total Protein 7.1 (6.3-8.2) g/dL Albumin 4.4 (3.5-5.0) g/dL - EKG Data EKG Comments: Normal sinus rhythm, normal ECG, no acute process. Jugular rate 98, ND interval 144, QT 342. Disposition Clinical Impression: COVID-19, Viral infection Disposition: HOME SELF-CARE Condition: Stable Instructions (If sedation given, give patient instructions): Upper Respiratory Infection (ED) Additional Instructions: Please return to the Emergency Department if symptoms worsen or any other concerns. Labs and chest x-ray today are normal. Continue to treat symptoms at home with albuterol inhaler, ibuprofen or Tylenol for body aches and chills, lots of fluids and rest. Follow-up with your PCP. Is patient prescribed a controlled substance at d/c from ED?: No Referrals: Yassine Em DO [Primary Care Provider] - 1-2 days
[2020-06-18 15:23] LABS: ALT 28 U/L (4-34); AST 23 U/L (14-36); African American GFR (CKD) >90 (>60 ml/min/1.73 sqM); Albumin 4.4 g/dL (3.5-5.0); Alkaline Phosphatase 63 U/L (38-126); Anion Gap 6 mmol/L; Blood Urea Nitrogen 11 mg/dL (7-17); C Reactive Protein <5.0 mg/L (<10.0); Calcium 9.3 mg/dL (8.4-10.2); Carbon Dioxide 26 mmol/L (22-30); Chloride 106 mmol/L (98-107); Glucose 122 mg/dL (74-99); Non-African American GFR(CKD) >90 (>60 ml/min/1.73 sqM); Potassium 3.7 mmol/L (3.5-5.1); Sodium 138 mmol/L (137-145); Total Bilirubin 0.3 mg/dL (0.2-1.3); Total Protein 7.1 g/dL (6.3-8.2)
[2020-06-18 15:41] VITALS: BP 137/98; PULSE 92; TEMP 99.1
--- NOTE | 2020-06-18 16:02 | XR ---
EXAMINATION TYPE: XR chest 2V DATE OF EXAM: 06/18/2020 COMPARISON: NONE HISTORY: Difficulty breathing TECHNIQUE: FINDINGS: Heart and mediastinum are normal. Lungs are clear. Diaphragm is normal. Bony thorax appears normal. IMPRESSION: Normal chest.
== END 2020-06-18 16:36 | disposition home or self-care (01) ==
LOC: EC 13:56
DX: U07.1 COVID-19 (principal); B34.9 Viral infection, unspecified; F41.9 Anxiety disorder, unspecified; F32.9 Major depressive disorder, single episode, unspecified; Z79.899 Other long term (current) drug therapy; Z79.890 Hormone replacement therapy; Z88.5 Allergy status to narcotic agent; Z88.8 Allergy status to other drugs, medicaments and biological substances; Z87.891 Personal history of nicotine dependence; Z85.41 Personal history of malignant neoplasm of cervix uteri
CPT/HCPCS: 36415; 71046; 80053; 85025; 85379; 86140; 93005; 99284

== ENCOUNTER → 2022-11-07 | Outpatient (CLI) | payer BC ==
[2022-11-07 15:07] LABS: Basophils # (A) 0.03 X 10*3/uL (0.00-0.10); Basophils % (A) 0.7 %; Eosinophils # (A) 0.05 X 10*3/uL (0.04-0.35); Eosinophils % (A) 1.2 %; HCT 42.5 % (37.2-46.3); HGB 13.7 g/dL (12.0-15.0); Immature Grans, Automated 0 %; Lymphocytes # (A) 1.38 X 10*3/uL (0.90-5.00); Lymphocytes % (A) 34.2 %; MCH 30.6 pg (27.0-32.0); MCHC 32.2 g/dL (32.0-37.0); MCV 94.9 fL (80.0-97.0); Mean Platelet Volume 10.1 fL (9.5-12.2); Monocytes # (A) 0.22 X 10*3/uL (0.20-1.00); Monocytes % (A) 5.4 %; NRBC Per 100 WBC 0 /100 WBCS (0.0-0.0); Neutrophils # (A) 2.36 X 10*3/uL (1.80-7.70); Neutrophils % (A) 58.5 %; Platelet Count 279 X 10*3/uL (140-440); RBC 4.48 X 10*6/uL (4.10-5.20); RDW 13.2 % (11.5-14.5); WBC 4.04 X 10*3/uL (4.50-10.00)
[2022-11-07 15:40] LABS: ALT 17 U/L (8-44)
[2022-11-07 15:41] LABS: AST 10 U/L (13-35); African American GFR (CKD) 79.9 (60.0-200.0); C Reactive Protein <0.30 mg/dL (0.00-0.80); Erythrocyte Sedimentation Rate 3 mm/Hr (0-20); Non-African American GFR(CKD) 68.9 (60.0-200.0)
== END | disposition home or self-care (01) ==
LOC: LABWHC1 09:17
PROVIDERS: ATTEND Internal Medicine Rheumatology
DX: Z79.899 Other long term (current) drug therapy (principal)
CPT/HCPCS: 36415; 82565; 84450; 84460; 85025; 85652; 86140

== ENCOUNTER → 2023-09-06 | Outpatient (CLI) | payer BC ==
--- NOTE | 2023-09-06 09:16 | MM ---
Reason for Exam: Clinical finding. Last mammogram was performed 24 year(s) and 8 month(s) ago. Indicated Problems: Non-bloody discharge of both sides (Green) for 3 Year(s). Other indicated problem of both sides : brownish to black discharge. Lump or thickening of the right side (size 20) for 1 Day(s). Patient History: Menarche at age 11. Hysterectomy at age 26. Risk Values: Brenna 5 year model risk: 0.6%. NCI Lifetime model risk: 7.1%. Prior Study Comparison: No prior studies available for comparison. Tissue Density: The breast tissue is extremely dense which could obscure a lesion on mammography. Findings: Analyzed By CAD. Diffuse bilateral rounded punctate calcifications are present. Palpable marker placed along the superior aspect of the right breast. No discrete abnormality is otherwise seen. Overall Assessment: Incomplete: need additional imaging evaluation, BI-RAD 0 Management: Diagnostic Breast Ultrasound of the right breast. Superior half. Electronically signed and approved by: Adilene Zamora M.D. Radiologist
--- NOTE | 2023-09-06 09:41 | USB ---
Reason for Exam: Clinical finding. Patient History: Menarche at age 11. Hysterectomy at age 26. Risk Values: Brenna 5 year model risk: 0.6%. NCI Lifetime model risk: 7.1%. Technique: Method: Targeted. Prior Study Comparison: 12/22/1998 Bilateral Diagnostic Mammogram, [facility]. Findings: The upper section of the breast of the right breast, the area of palpable concern of the right breast, the axilla of the right breast and the retroareolar of the right breast were scanned. Targeted ultrasound right breast 11:00 to 3:00 position including scanning of the subareolar region and axilla. At the patient's palpable 12:00 site, 3 cm from the nipple, there is a benign 5 x 4 x 4 mm cyst. Some minimal internal debris or calcification is present. No other solid or cystic lesion or axillary adenopathy. Dense tissue is present throughout. Overall Assessment: Benign, BI-RAD 2 Management: Screening Mammogram of both breasts in 1 year. Given the patient's extremely dense breast tissue, supplementary screening with ultrasound can be considered. Patient should continue monthly self breast exams. Results were given to the patient verbally at the time of exam. Electronically signed and approved by: Adilene Zamora M.D. Radiologist
== END | disposition home or self-care (01) ==
LOC: RADMAMWWP 08:34
PROVIDERS: ATTEND Obstetrics & Gynecology Obstetrics
DX: N63.0 Unspecified lump in unspecified breast (principal)
CPT/HCPCS: 77062; 77066

== ENCOUNTER → 2024-05-26 | Outpatient (CLI) | payer BC ==
--- NOTE | 2024-05-26 09:18 | MM ---
Reason for Exam: Clinical finding. Last screening mammogram was performed 9 month(s) ago. Indicated Problems: Non-bloody discharge of both sides (White) for 6 Month(s). Patient History: Menarche at age 11. First Full-Term at age 21. Hysterectomy at age 26. Patient used Hormonal Contraceptives for 3 years. Risk Values: Brenna 5 year model risk: 0.7%. NCI Lifetime model risk: 8.7%. Prior Study Comparison: 12/22/1998 Bilateral Diagnostic Mammogram, [facility]. 12/22/1998 Bilateral Diagnostic Ultrasound, [facility]. 09/06/2023 Right US breast limited RT, [facility]. 09/06/2023 Bilateral MG 3D diag mammo w/cad ITZ, [facility]. Tissue Density: The breasts are extremely dense, which lowers the sensitivity of mammography. Findings: Analyzed By CAD. The pattern is symmetrical. Multiple benign scattered round calcifications are present bilaterally. No suspicious groups of microcalcifications, spiculated or lobular masses, architectural distortion or other secondary signs of malignancy are mammographically apparent. Overall Assessment: Benign, BI-RAD 2 Management: Screening Mammogram of both breasts in 6 months. A negative mammogram report should not preclude additional follow up of suspicious palpable abnormalities. Patient should continue monthly self breast exam. A clinical breast exam by your physician is recommended on an annual basis and results should be correlated with mammographic findings. Note on Brenna scores and lifetime risk: 1. A Brenna score greater than 3% is considered moderate risk. If this is the case, consider specialist referral to assess eligibility for a risk reducing agent. 2. If overall lifetime risk for the development of breast cancer is 20% or higher, the patient may qualify for future screening with alternating mammogram and breast MRI. [facility], , 05/26/2024 9:15 AM. Electronically signed and approved by: Lam Bojorquez D.O. Radiologis
== END | disposition home or self-care (01) ==
LOC: RADMAMWWP 08:43
PROVIDERS: ATTEND Obstetrics & Gynecology Obstetrics
DX: N64.52 Nipple discharge (principal); R92.343 Mammographic extreme density, bilateral breasts
CPT/HCPCS: 77062; 77066

== ENCOUNTER → 2024-06-03 | Outpatient (CLI) | payer BC ==
--- NOTE | 2024-06-05 13:30 | MR ---
CLINICAL INDICATION: Migraine, elevated prolactin levels. COMPARISON: None. TECHNIQUE: Multi planar, multi sequence imaging was performed through the pituitary gland/sella turc ica. Specialized thin sequences were obtained through the pituitary gland/sella turcica. Pre-and po st gadolinium sequences were obtained as well after administration of 6 cc of Gadavist. FINDINGS: The ramsay-white junctions, ventricular system, and basal cisterns appear unremarkable. The morphology of the pituitary gland is within normal limits. The pituitary stalk is not deviated. After administ ration of gadolinium, heterogenous pituitary enhancement is seen without discrete lesion. The intrac ranial arterial flow voids are intact. IMPRESSION: No convincing MRI evidence for pituitary micro or macroadenoma. If the patient has abnormal labs and/ or symptoms possibly related to pituitary neoplasm I would consider repeat MRI in 6-12 months time to reassess. [facility], , 06/05/2024 1:28 PM
== END | disposition home or self-care (01) ==
LOC: RADMRIMAIN 07:02
PROVIDERS: ATTEND Psychiatry & Neurology Neurology
DX: G43.909 Migraine, unspecified, not intractable, without status migrainosus (principal); R79.89 Other specified abnormal findings of blood chemistry
CPT/HCPCS: 70553; A9585

== ENCOUNTER → 2024-12-02 | Outpatient (CLI) | payer BC ==
--- NOTE | 2024-12-02 10:36 | MM ---
Reason for Exam: Screening (asymptomatic). Last screening mammogram was performed 6 month(s) ago. Patient History: Menarche at age 11. First Full-Term at age 21. Hysterectomy at age 26. Patient used Hormonal Contraceptives for 3 years. Risk Values: Brenna 5 year model risk: 0.7%. NCI Lifetime model risk: 8.6%. Prior Study Comparison: 12/22/1998 Bilateral Diagnostic Mammogram, [facility]. 09/06/2023 Bilateral MG 3D diag mammo w/cad ITZ, [facility]. 05/26/2024 Bilateral MG 3D diag mammo w/cad ITZ, [facility]. Tissue Density: The breasts are extremely dense, which lowers the sensitivity of mammography. Findings: Analyzed By CAD. Persistent innumerable scattered calcification bilaterally. There is no suspicious new group of microcalcifications or new suspicious mass in either breast. [place] marker over the right breast is noted. Overall Assessment: Incomplete: need additional imaging evaluation, BI-RAD 0 Management: Diagnostic Breast Ultrasound of the right breast. Targeted ultrasound right breast due to new palpable abnormality. Patient should continue monthly self-breast exams. A clinical breast exam by your physician is recommended on an annual basis. This exam should not preclude additional follow-up of suspicious palpable abnormalities. Note on Brenna scores and lifetime risk: 1. A Brenna score greater than 3% is considered moderate risk. If this is the case, consider specialist referral to assess eligibility for a risk reducing agent. 2. If overall lifetime risk for the development of breast cancer is 20% or higher, the patient may qualify for future screening with alternating mammogram and breast MRI. [facility], , 12/02/2024 10:33 AM. Electronically signed and approved by: Alli Flores M.D.
== END | disposition home or self-care (01) ==
LOC: RADMAMWWP 09:01
PROVIDERS: ATTEND Obstetrics & Gynecology Obstetrics
DX: Z12.31 Encounter for screening mammogram for malignant neoplasm of breast (principal); R92.343 Mammographic extreme density, bilateral breasts; R92.1 Mammographic calcification found on diagnostic imaging of breast; Z92.0 Personal history of contraception
CPT/HCPCS: 77063; 77067

== ENCOUNTER → 2024-12-09 | Outpatient (CLI) | payer BC ==
--- NOTE | 2024-12-09 09:06 | USB ---
Reason for Exam: Additional evaluation requested from abnormal screening. Patient History: Menarche at age 11. First Full-Term at age 21. Hysterectomy at age 26. Patient used Hormonal Contraceptives for 3 years. Risk Values: Brenna 5 year model risk: 0.7%. NCI Lifetime model risk: 8.6%. Technique: Method: Targeted. Prior Study Comparison: 09/06/2023 Bilateral MG 3D diag mammo w/cad ITZ, [facility]. 05/26/2024 Bilateral MG 3D diag mammo w/cad ITZ, [facility]. 12/02/2024 Bilateral MG 3D screening mammo w/cad, [facility]. Findings: The area of palpable concern of the right breast, the axilla of the right breast and the retroareolar of the right breast were scanned. Technique utilized:US breast workup limited RT Image; Ultrasound imaging of: All 4 quadrants, the retroareolar region and axilla. Redemonstration of cyst at 11:00 7 cm from nipple measuring 4 x 3 x 4 mm. In area of palpable abnormality there is no organizing fluid collection or mass. Negative right axilla. Overall Assessment: Benign, BI-RAD 2 Management: Screening Mammogram of both breasts in 1 year. A clinical breast exam by your physician is recommended on an annual basis and results should be correlated with mammographic findings. This exam should not preclude additional follow-up of suspicious palpable abnormalities. Results were given to the patient verbally at the time of exam. [facility], , 12/09/2024 9:03 AM. Electronically signed and approved by: Barry Mckinnon DO
== END | disposition home or self-care (01) ==
LOC: RADUSWWP 08:40
PROVIDERS: ATTEND Obstetrics & Gynecology Obstetrics
DX: R92.8 Other abnormal and inconclusive findings on diagnostic imaging of breast (principal); Z92.0 Personal history of contraception